=== PATIENT | male | born 1955 | race Two or more races ===

== ENCOUNTER 2019-07-28 17:59 | Emergency (ER) | payer BC ==
[~2019-07-28] VITALS: Ht 170.2 cm; Wt 81.6 kg
--- NOTE | 2019-07-28 18:32 | NUR ---
c/o hematuria and dysuria x 6 months worsening x 1 week 10/10ps. ON ANTIBIOTICS FOR UTI. DENIES SOB, DIZZINESS, WEAKNESS, N/V. AOX4, AMBULATORY, VSS, RR EVEN AND UNLABORED ON RA. NO ACUTE DISTRESS NOTED. READY FOR EVAL.
[2019-07-28 19:06] LABS: APPEARANCE,URINE Cloudy (CLEAR); BILIRUBIN,URINE SMALL (NEGATIVE); BLOOD, URINE Large Ery/uL (NEGATIVE); COLOR,URINE Other (YELLOW); KETONES,URINE Trace (NEGATIVE); LEUKOCYTE ESTERASE ,URINE Large (NEGATIVE); NITRITE, URINE Negative (NEGATIVE); PH,URINE 5.5 (5.0-8.0); PROTEIN,URINE >=300 mg/dl (NEGATIVE); UGLUCOSE Negative (NEGATIVE)
[2019-07-28 19:29] LABS: BACTERIA,URINE 3+ /HPF (None Seen); RBC,URINE TOO NUMEROUS TO COUN /HPF (0-2); SQUAMOUS EPITHELIAL CELL,UR Few /HPF (None Seen); WBC,URINE TOO NUMEROUS TO COUN /HPF (0-3)
--- NOTE | 2019-07-28 19:41 | NUR ---
Patient discharged to home in stable condition. Written and verbal after care instructions given. Patient verbalizes understanding of instruction.
[2019-07-28 21:01] VITALS: BP 116/84
[2019-08-14] MEDS ORDERED: CEPH-570 PO (10:44)
[2019-08-14] MEDS ORDERED: HYDR-4354 PO (10:44)
[2019-08-14] MEDS ORDERED: FLUC200T8 PO (10:44)
== END 2019-07-28 19:45 | disposition home or self-care (01) ==
LOC: ER 18:00
DX: N39.0 Urinary tract infection, site not specified (principal); I10 Essential (primary) hypertension; E78.5 Hyperlipidemia, unspecified; K21.9 Gastro-esophageal reflux disease without esophagitis; Z95.5 Presence of coronary angioplasty implant and graft; Z87.442 Personal history of urinary calculi; Z88.8 Allergy status to other drugs, medicaments and biological substances
CPT/HCPCS: 81000-TC; 87086-TC

== ENCOUNTER 2019-08-10 04:33 | Emergency (ER) | payer OTHER, BC ==
[~2019-08-10] VITALS: Ht 170.2 cm; Wt 82.6 kg
[2019-08-10] MEDS ORDERED: KETOROLAC TROMETHAMINE 15 MG/ML VIAL ONE (04:52)
[2019-08-10] MEDS ORDERED: MORPHINE SULFATE INJ 4 MG/ML DISP.SYRIN ONE (04:52)
[2019-08-10] MEDS ORDERED: IV NS 0.9% 500 ML BAG IV ONE (05:00)
[2019-08-10] MEDS ORDERED: KETOROLAC TROMETHAMINE INJ 30 MG/ML VIAL IV ONE (05:00)
[2019-08-10] MEDS ORDERED: MORPHINE SULFATE INJ 2 MG/ML DISP.SYRIN IV ONE ×2 (05:00→06:00)
--- NOTE | 2019-08-10 05:03 | NUR ---
UNABLE TOP OBTAIN LABS
--- NOTE | 2019-08-10 05:11 | NUR ---
REWORKER AT BEDSIDE.
[2019-08-10 05:25] LABS: BASOPHILS % (AUTO) 0.3 % (0.0-2.0); EOSINOPHILS % (AUTO) 2.6 % (0.0-6.0); HEMATOCRIT 37 % (39-51); HEMOGLOBIN 12.1 g/dL (13.5-17.5); LYMPHOCYTES % (AUTO) 19.1 % (20.0-44.0); MEAN CORPUSCULAR HGB CONC 33 g/dl (31.0-36.0); MEAN CORPUSCULAR VOLUME 86 fL (80-96); MONOCYTES # (AUTO) 0.9 /CMM (0.1-1.30); MONOCYTES % (AUTO) 8.8 % (2.0-12.0); NEUTROPHILS # (AUTO) 7.2 /CMM (1.8-8.9); NEUTROPHILS % (AUTO) 69.2 % (43.0-81.0); PLATELET COUNT (AUTO) 312 /CMM (150-450); RED BLOOD CELL COUNT(AUTO) 4.36 MIL/uL (4.5-6.0); WHITE BLOOD COUNT (AUTO) 10.4 K/uL (4.3-11.0)
--- NOTE | 2019-08-10 05:25 | NUR ---
URINE SENT TO LAB
--- NOTE | 2019-08-10 05:31 | NUR ---
BROUGHT TO CT
--- NOTE | 2019-08-10 05:40 | NUR ---
BROUGHT BACK FROM CT
[2019-08-10 05:41] LABS: CALCIUM, SERUM 8.3 mg/dL (8.5-10.1); CREATININE 1.1 mg/dL (0.6-1.3); POTASSIUM 3.4 mmol/L (3.5-5.1)
[2019-08-10] MEDS ORDERED: MORPHINE SULFATE INJ 2 MG/ML DISP.SYRIN ONE (05:48)
[2019-08-10] MEDS ORDERED: ONDANSETRON HCL/PF 4 MG/2 ML VIAL ONE (05:48)
[2019-08-10] MEDS ORDERED: ONDANSETRON HCL/PF 4 MG/2 ML VIAL IV ONE (06:00)
[2019-08-10 06:39] LABS: BILIRUBIN,URINE MODERATE (NEGATIVE); BLOOD, URINE LARGE Ery/uL (NEGATIVE); COLOR,URINE ORANGE (YELLOW); KETONES,URINE TRACE (NEGATIVE); LEUKOCYTE ESTERASE ,URINE SMALL (NEGATIVE); NITRITE, URINE POSITIVE (NEGATIVE); PH,URINE 5.5 (5.0-8.0); PROTEIN,URINE >=300 mg/dl (NEGATIVE); UGLUCOSE 250 MG/DL mg/dL (NEGATIVE); UROBILINOGEN,URINE >=8.0 EU/dL (0.2)
[2019-08-10 06:41] LABS: APPEARANCE,URINE TURBID (CLEAR); RBC,URINE 81-100 /HPF (0-2); WBC,URINE TOO NUMEROUS TO COUN /HPF (0-3)
[2019-08-10 06:42] LABS: BACTERIA,URINE Rare /HPF (None Seen); SQUAMOUS EPITHELIAL CELL,UR 0-2 /HPF (None Seen)
--- NOTE | 2019-08-10 06:42 | NUR ---
Patient is resting comfortably in bed. Easily aroused. VSS.
[2019-08-10 07:10] VITALS: BP 112/68
--- NOTE | 2019-08-10 07:11 | NUR ---
RESTING COMFORTABLY. VSS.
[2019-08-10] MEDS: HYDROMORPHONE INJ 0.5 MG/0.5 ML SYRINGE IV ONE ×2 (07:15→07:30)
--- NOTE | 2019-08-10 07:20 | NUR ---
ASSESSED PT ON BED ASLEEP EASILY AROUSABLE, AAOX4, NOT IN RESPIRATORY DISTRESS DISTRESS, V/S STABLE, KEPT RESTED AND COMFORTABLE. WILL CONTINUE TO MONITOR.
[2019-08-10] MEDS ORDERED: HYDROMORPHONE 1 MG/1 ML DISP.SYRIN ONE (07:25)
[2019-08-10] MEDS ORDERED: CEFTRIAXONE 1GM BAG (ER ONLY) 50 ML IV ONE (07:25)
[2019-08-10] MEDS ORDERED: PHENAZOPYRIDINE HCL 200 MG TABLET ONE (07:25)
[2019-08-10] MEDS ORDERED: CEFTRIAXONE 1 G in IV D5W 50 ML IV ONE (07:30)
[2019-08-10] MEDS ORDERED: PHENAZOPYRIDINE HCL 200 MG TABLET PO ONE (07:30)
--- NOTE | 2019-08-10 08:05 | NUR ---
IV removed. Catheter intact and site benign. Pressure and 4x4 applied to site. No bleeding noted. Patient discharged to home in stable condition. Written and verbal after care instructions given. Patient verbalizes understanding of instruction.
[2019-08-14] MEDS ORDERED: HYDR-4354 PO (10:44)
[2019-08-14] MEDS ORDERED: CEPH-570 PO (10:44)
[2019-08-14] MEDS ORDERED: FLUC200T8 PO (10:44)
== END 2019-08-10 08:06 | disposition home or self-care (01) ==
LOC: ER 04:37
DX: N21.0 Calculus in bladder (principal); R10.2 Pelvic and perineal pain; I10 Essential (primary) hypertension; E78.5 Hyperlipidemia, unspecified; K21.9 Gastro-esophageal reflux disease without esophagitis; Z95.5 Presence of coronary angioplasty implant and graft; Z87.442 Personal history of urinary calculi
CPT/HCPCS: 36415; 74176; 80048; 81001; 85025; 87086; 96365; 96375; 96376; 99284; J0696; J1170; J1885; J2270 ×2; J2405; J7040; 81000-TC; J7060

== ENCOUNTER 2019-08-11 23:12 | Emergency (ER) | payer OTHER, BC ==
[~2019-08-11] VITALS: Ht 170.2 cm; Wt 81.6 kg
[2019-08-11 23:22] VITALS: BP 136/88
[2019-08-11] MEDS ORDERED: HYDROMORPHONE INJ 2 MG/ML DISP.SYRIN ONE (23:28)
[2019-08-11] MEDS ORDERED: ONDANSETRON 4 MG TAB.RAPDIS ONE (23:29)
[2019-08-11] MEDS ORDERED: ONDANSETRON 4 MG TAB.RAPDIS SL ONE (23:30)
[2019-08-11] MEDS ORDERED: HYDROMORPHONE INJ 0.5 MG/0.5 ML SYRINGE IM ONE (23:30)
--- NOTE | 2019-08-11 23:41 | NUR ---
PT PRESCRIBED NORCO 10. VSS. NO PAIN UPON DISCHARGE.
[2019-08-12] MEDS ORDERED: METO25TA6 PO (23:36)
[2019-08-12] MEDS ORDERED: AMLO5TAB9 PO (23:36)
[2019-08-12] MEDS ORDERED: OMEP20CA15 PO (23:36)
[2019-08-12] MEDS ORDERED: CEPH500C2 PO (23:36)
[2019-08-12] MEDS ORDERED: HYDR-4354 PO (23:36)
[2019-08-14] MEDS ORDERED: HYDR-4354 PO (10:44)
[2019-08-14] MEDS ORDERED: FLUC200T8 PO (10:44)
[2019-08-14] MEDS ORDERED: CEPH-570 PO (10:44)
== END 2019-08-11 23:42 | disposition home or self-care (01) ==
LOC: ER 23:20
DX: N23 Unspecified renal colic (principal); I10 Essential (primary) hypertension; E78.5 Hyperlipidemia, unspecified; K21.9 Gastro-esophageal reflux disease without esophagitis; Z95.5 Presence of coronary angioplasty implant and graft; Z88.8 Allergy status to other drugs, medicaments and biological substances
CPT/HCPCS: 96372; 99283; J1170; Q0162

== ENCOUNTER 2019-08-12 21:29 | Inpatient (IN) | payer OTHER, BC ==
[~2019-08-12] VITALS: Ht 170.2 cm; Wt 85.3 kg
--- NOTE | 2019-08-12 21:42 | NUR ---
PT AAOX4. AMBULATORY WITH STEADY GAIT. C/O LOWER ABD PAIN, SEEN YESTERDAY FOR RENAL STONE, CONTINUES TO HAVE SEVERE PAIN. PT WAS GIVEN PX FOR NORCO 10 BUT PATIENT DID NOT TAKE THE MEDICATION DUE TO HIM TAKING VICODIN PRIOR TO RECIEVING THE NORCO FROM PHARMACY. RR EVEN AND UNLABORED, NO ACUTE DISTRESS NOTED. VSS. WILL CONTINUE TO MONITOR.
[2019-08-12] MEDS ORDERED: KETOROLAC TROMETHAMINE INJ 30 MG/ML VIAL ONE (22:12)
[2019-08-12] MEDS ORDERED: HYDROMORPHONE 1 MG/1 ML DISP.SYRIN ONE ×2 (22:13→23:57)
[2019-08-12 22:27] LABS: APPEARANCE,URINE Cloudy (CLEAR); BILIRUBIN,URINE SMALL (NEGATIVE); BLOOD, URINE Large Ery/uL (NEGATIVE); COLOR,URINE Red (YELLOW); KETONES,URINE Trace (NEGATIVE); LEUKOCYTE ESTERASE ,URINE Large (NEGATIVE); NITRITE, URINE Positive (NEGATIVE); PROTEIN,URINE >=300 mg/dl (NEGATIVE); UGLUCOSE Negative (NEGATIVE)
[2019-08-12] MEDS ORDERED: HYDROMORPHONE INJ 2 MG/ML DISP.SYRIN IV ONE (22:30)
[2019-08-12] MEDS ORDERED: KETOROLAC TROMETHAMINE INJ 30 MG/ML VIAL IV ONE (22:30)
[2019-08-12] MEDS ORDERED: ONDANSETRON HCL/PF 4 MG/2 ML VIAL ONE (22:32)
[2019-08-12 22:37] LABS: BACTERIA,URINE 3+ /HPF (None Seen); RBC,URINE TOO NUMEROUS TO COUN /HPF (0-2); SQUAMOUS EPITHELIAL CELL,UR Few /HPF (None Seen); WBC,URINE 51-80 /HPF (0-3)
[2019-08-12] MEDS ORDERED: ONDANSETRON HCL/PF - ER 4 MG/2 ML VIAL IV ONE (23:00)
[2019-08-12] MEDS ORDERED: CEFTRIAXONE 1 G VIAL IM ONE (23:00)
[2019-08-12] MEDS ORDERED: NITROFURANTOIN/NITROFURAN MAC 100 MG CAPSULE PO ONE (23:00)
[2019-08-12] MEDS ORDERED: FLUCONAZOLE (100 MG) 100 MG TABLET PO ONE (23:00)
[2019-08-12] MEDS ORDERED: NITROFURANTOIN/NITROFURAN MAC 100 MG CAPSULE ONE (23:11)
[2019-08-12] MEDS ORDERED: FLUCONAZOLE (100 MG) 100 MG TABLET ONE (23:11)
[2019-08-12] MEDS ORDERED: CEFTRIAXONE 1GM BAG (ER ONLY) 50 ML IV ONE (23:11)
--- NOTE | 2019-08-12 23:21 | NUR ---
PT DENIES PAIN. VSS. PLACED ON MONITOR AND PULSE OX.
[2019-08-12] MEDS ORDERED: CEFTRIAXONE 1GM BAG (ER ONLY) 1 GM/50 ML PIGGYBACK IV ONE (23:30)
--- NOTE | 2019-08-12 23:31 | NUR ---
CALLED NURSING SUP FOR MEDSURG BED
[2019-08-12] MEDS ORDERED: AMLO5TAB9 PO (23:36)
[2019-08-12] MEDS ORDERED: METO25TA6 PO (23:36)
[2019-08-12] MEDS ORDERED: HYDR-4354 PO (23:36)
[2019-08-12] MEDS ORDERED: OMEP20CA15 PO (23:36)
[2019-08-12] MEDS ORDERED: CEPH500C2 PO (23:36)
--- NOTE | 2019-08-12 23:50 | NUR ---
PT AGREED TO BE ADMITTED. MED RECON DONE.
[2019-08-13] MEDS ORDERED: HYDROMORPHONE 1 MG/1 ML DISP.SYRIN IV PRN
--- NOTE | 2019-08-13 00:20 | NUR ---
REPORT GIVEN TO ROGELIO GALVEZ FOR LATRICIA
[2019-08-13] MEDS ORDERED: ACETAMINOPHEN 325 MG TABLET PO PRN (00:30)
[2019-08-13] MEDS ORDERED: MAG HYDROX/AL HYDROX/SIMETH 30 ML UDC PO PRN (00:30)
[2019-08-13] MEDS ORDERED: MAGNESIUM HYDROXIDE 30 ML UDC PO PRN (00:30)
[2019-08-13] MEDS ORDERED: ONDANSETRON HCL/PF 4 MG/2 ML VIAL IVP PRN (00:30)
[2019-08-13] MEDS ORDERED: IV NS 0.9% 1,000 ML IV SCH (00:30)
[2019-08-13] MEDS ORDERED: Z GUARD REMEDY 2 OZ OINT TP PRN (00:30)
[2019-08-13 00:38] LABS: BASOPHILS % (AUTO) 0.3 % (0.0-2.0); EOSINOPHILS % (AUTO) 3.5 % (0.0-6.0); HEMATOCRIT 36 % (39-51); HEMOGLOBIN 11.8 g/dL (13.5-17.5); LYMPHOCYTES # (AUTO) 2.4 /CMM (0.8-4.8); LYMPHOCYTES % (AUTO) 32.7 % (20.0-44.0); MEAN CORPUSCULAR HGB CONC 33 g/dl (31.0-36.0); MEAN CORPUSCULAR VOLUME 86 fL (80-96); MONOCYTES # (AUTO) 0.8 /CMM (0.1-1.30); MONOCYTES % (AUTO) 11.1 % (2.0-12.0); NEUTROPHILS # (AUTO) 3.8 /CMM (1.8-8.9); NEUTROPHILS % (AUTO) 52.4 % (43.0-81.0); PLATELET COUNT (AUTO) 328 /CMM (150-450); RED BLOOD CELL COUNT(AUTO) 4.17 MIL/uL (4.5-6.0); WHITE BLOOD COUNT (AUTO) 7.3 K/uL (4.3-11.0)
--- NOTE | 2019-08-13 00:45 | NUR ---
MS VICE PRESIDENT NETWORK DEVELOPMENT NOTES Received patient from ER via [facility] accompanied by 1 ER staff. Admitted patient to [facility] due to UTI. Transferred to bed comfortably. Patient noted ambulatory with steady gait. Admission routine done. Patient denies any discomfort at this time. Patient refused skin assessment, no skin issues identified according to patient. Patient preferred to keep on own clothes. Admission orders noted and carried out. Kept patient on bed clean, dry and comfortable. Call light within easy reach. Will continue to monitor accordingly.
[2019-08-13 00:48] LABS: CALCIUM, SERUM 8.7 mg/dL (8.5-10.1); CREATININE 1.3 mg/dL (0.6-1.3); POTASSIUM 4.2 mmol/L (3.5-5.1)
[2019-08-13 01:12] VITALS: BP 140/96
--- NOTE | 2019-08-13 06:38 | NUR ---
MS RN CLOSING NOTES Patient asleep, easily awaken. On RA, no SOB/respiratory distress noted. Denies any discomfort at this time. Able to ambulate to bathroom independently. All due meds given as ordered. All nursing needs attended. Kept on bed clean, dry and comfortable. Call light within easy reach. Endorsed.
[2019-08-13] MEDS ORDERED: IV NS 0.9% 1,000 ML IV PRN (07:25)
--- NOTE | 2019-08-13 07:30 | NUR ---
RN MS NOTES PT IN BED, AWAKE, ALERT AND ORIENTED, WITH COMPLAINT OF LOWER ABDOMINAL PAIN, BREATHING PATTERN NORMAL, AMBULATES WITH STEADY GAIT INSIDE HIS ROOM AND IN THE BATHROOM, IV FLUIDS INFUSING WELL, CALL LIGHT WITHIN REACH.
[2019-08-13] MEDS: PANTOPRAZOLE 40 MG TABLET.DR PO SCH (07:42)
[2019-08-13] MEDS: HYDROCODONE/APAP 5/325MG 1 EACH TABLET PO PRN ×2 (07:46→15:12)
[2019-08-13 08:00] VITALS: BP 126/78
[2019-08-13] MEDS: MORPHINE SULFATE INJ 2 MG/ML DISP.SYRIN IV PRN ×3 (08:14→23:16)
[2019-08-13] MEDS: METOPROLOL TARTRATE 25 MG TABLET PO SCH ×2 (08:21→17:13)
[2019-08-13] MEDS: AMLODIPINE BESYLATE 5 MG TABLET PO SCH (08:22)
--- NOTE | 2019-08-13 08:30 | NUR ---
RN MS NOTES PT SEEN AND EXAMINED BY DR. ARREDONDO, PLAN OF CARE DISCUSSED WITH PT, VERBALIZED UNDERSTANDING.
--- NOTE | 2019-08-13 12:14 | NUR ---
RN MS NOTES PT IN BED, AWAKE, ALERT AND ORIENTED, NO COMPLAINT OF PAIN AT THIS TIME, IV FLUIDS INFUSING WELL, TOLERATES CURRENT DIET, CALL LIGHT WITHIN REACH.
[2019-08-13 16:00] VITALS: BP 121/83
[2019-08-13 19:00] VITALS: BP 108/82
--- NOTE | 2019-08-13 19:00 | NUR ---
RN MS NOTES PT AWAKE, WATCHING TV, ALERT AND ORIENTED, PAIN MEDS GIVEN ORDERED FOR PAIN MANAGEMENT, NOT IN DISTRESS, CALL LIGHT WITHIN REACH, IV FLUIDS INFUSING WELL, SEEN THIS AFTERNOON AGAIN BY DR. ARREDONDO, CURRENT PLAN OF CARE DISCUSSED WITH PT, VERBALIZED UNDERSTANDING, AMBULATES TO THE BATHROOM WITH STEADY GAIT, ALL NEEDS ATTENDED.
--- NOTE | 2019-08-13 19:45 | NUR ---
MS RN OPENING NOTES RECEIVED REPORT FROM [facility] RN ELLE. FOUND Pt AWAKE, TALKING ON THE PHONE. NO S/S OF ACUTE DISTRESS OR SOB NOTED. Pt IS A/OX4, VERBAL, ABLE TO MAKE NEEDS KNOWN; TURKMEN SPEAKING BUT UNDERSTANDS SOME UZBEK. NO C/O PAIN AT THIS TIME. IV ACCESS ON L HAND #20G, IVF NS @100ML/HR. Pt IS AMBULATORY WITH STEADY GAIT. BED LOW & LOCKED. BEDSIDE TABLE AND CALL LIGHT WITHIN REACH. WILL CONTINUE TO MONITOR Pt' CONDITION AND SAFETY DURING THE NIGHT.
[2019-08-13 20:30] VITALS: BP 108/82
[2019-08-13] MEDS ORDERED: FLUCONAZOLE (100 MG) 100 MG TABLET PO SCH (22:00)
[2019-08-13] MEDS ORDERED: CEFTRIAXONE 1 G in IV D5W 50 ML IV SCH (23:00)
--- NOTE | 2019-08-14 00:31 | NUR ---
RN NOTES Pt REQUESTING FOR IVF TO BE OFF WHILE HE IS ASLEEP, SAID HE IS GETTING UP TOO OFTEN TO URINATE AND HE WANTS TO GET SOME REST FOR THE NIGHT. TOOK Pt OFF OF IVF FOR NOW PER Pt REQUEST. IV ABX HAS ALREADY BEEN GIVEN. WILL CONTINUE TO MONITOR Pt.
--- NOTE | 2019-08-14 06:40 | NUR ---
RN CLOSING NOTES NO SIGNIFICANT CHANGES IN Pt's CONDITION. Pt REMAINS STABLE. NO S/S OF ACUTE DISTRESS OR SOB NOTED DURING THE NIGHT. Pt IS RESTING COMFORTABLY IN BED, WITH UNLABORED RESPIRATIONS. ALL NEEDS MET AND ATTENDED TO. SAFETY MEASURES IN PLACE. WILL ENDORSE TO DAYSHIFT RN FOR Pt's LATRICIA.
[2019-08-14 07:01] LABS: BASOPHILS % (AUTO) 0.5 % (0.0-2.0); EOSINOPHILS % (AUTO) 4.5 % (0.0-6.0); HEMATOCRIT 37 % (39-51); HEMOGLOBIN 12.1 g/dL (13.5-17.5); LYMPHOCYTES # (AUTO) 2.1 /CMM (0.8-4.8); LYMPHOCYTES % (AUTO) 27.2 % (20.0-44.0); MEAN CORPUSCULAR HGB CONC 33 g/dl (31.0-36.0); MEAN CORPUSCULAR VOLUME 86 fL (80-96); MONOCYTES # (AUTO) 0.7 /CMM (0.1-1.30); MONOCYTES % (AUTO) 9.5 % (2.0-12.0); NEUTROPHILS # (AUTO) 4.5 /CMM (1.8-8.9); NEUTROPHILS % (AUTO) 58.3 % (43.0-81.0); PLATELET COUNT (AUTO) 343 /CMM (150-450); RED BLOOD CELL COUNT(AUTO) 4.29 MIL/uL (4.5-6.0); WHITE BLOOD COUNT (AUTO) 7.7 K/uL (4.3-11.0)
[2019-08-14 07:15] LABS: MAGNESIUM 2.1 mg/dL (1.8-2.4); PHOSPHORUS 3.2 mg/dL (2.5-4.9); POTASSIUM 3.9 mmol/L (3.5-5.1)
--- NOTE | 2019-08-14 07:20 | NUR ---
RN OPENING NOTES RECEIVED PATIENT IN BED AWAKE WATCHING TV. A/OX4, ABLE TO MAKE NEEDS KNOWN. NOT IN ANY FORM OF DISTRESS, NO SOB. DENIED PAIN OR DISCOMFORT AT THIS TIME. IV ACCESS INTACT AND PATENT. KEPT PATIENT SAFE AND COMFORTABLE. BED IN LOW/LOCKED POSITION, SIDERAILS UPX2, CALL LIGHT IN REACH. WILL MONITOR ACCORDINGLY.
[2019-08-14 08:00] VITALS: BP 113/74
[2019-08-14] MEDS: PANTOPRAZOLE 40 MG TABLET.DR PO SCH (08:29)
[2019-08-14] MEDS: AMLODIPINE BESYLATE 5 MG TABLET PO SCH (08:29)
[2019-08-14 08:30] VITALS: BP 113/74
[2019-08-14] MEDS: METOPROLOL TARTRATE 25 MG TABLET PO SCH (08:30)
[2019-08-14] MEDS ORDERED: diphenhydrAMINE HCL 25 MG CAPSULE PO ONE (08:30)
[2019-08-14] MEDS ORDERED: CEPH-570 PO (10:44)
[2019-08-14] MEDS ORDERED: HYDR-4354 PO (10:44)
[2019-08-14] MEDS ORDERED: FLUC200T8 PO (10:44)
[2019-08-14] MEDS: MORPHINE SULFATE INJ 2 MG/ML DISP.SYRIN IV PRN (12:09)
--- NOTE | 2019-08-14 13:00 | NUR ---
DISCHARGED PATIENT IN STABLE CONDITION PICKED UP BY SON, ACCOMPANIED TO THE LOBBY BY CYNDI PERRY. DISCHARGED INSTRUCTIONS GIVEN, VERBALIZED UNDERSTANDING. ALL BELONGINGS RETURNED, FORMS SIGNED. DC PAPERWORK, EDUCATIONAL MATERIALS, ADN PRESCRIPTION HANDED TO PATIENT. IV ACCESS REMOVED, TIP INTACT, APPLIED PRESSURE, NO BLEEDING. REFUSED SKIN PHOTOS PATIENT STATED NO SKIN ISSUES.
== END 2019-08-14 13:00 | disposition home or self-care (01) | DRG 465 ==
LOC: ER 21:30 → MEDSG2 23:50
PROVIDERS: ADMIT Internal Medicine; ATTEND Nurse Practitioner Acute Care
DX: N21.0 Calculus in bladder (principal); N17.0 Acute kidney failure with tubular necrosis; N20.0 Calculus of kidney; B37.41 Candidal cystitis and urethritis; I10 Essential (primary) hypertension; N40.0 Benign prostatic hyperplasia without lower urinary tract symptoms; K21.9 Gastro-esophageal reflux disease without esophagitis; Z87.442 Personal history of urinary calculi; E78.5 Hyperlipidemia, unspecified
CPT/HCPCS: 36415; 76770-TC; 80048-TC; 81000-TC; 83735-TC; 84100-TC; 85025-TC; 87081-TC; 87086-TC; G0378; J0696; J1170; J1885; J2270; J2405; J7030; J7060; Q0163

== ENCOUNTER 2019-08-16 22:50 | Emergency (ER) | payer OTHER, BC ==
[~2019-08-16] VITALS: Ht 170.2 cm; Wt 81.6 kg
[~2019-08-16 22:50] MED LIST: AMLO5TAB9 PO; CEPH-570 PO; CEPH500C2 PO; FLUC200T8 PO; HYDR-4354 PO; METO25TA6 PO; OMEP20CA15 PO
[2019-08-16] MEDS ORDERED: KETOROLAC TROMETHAMINE 15 MG/ML VIAL ONE (23:14)
[2019-08-16] MEDS ORDERED: KETOROLAC TROMETHAMINE INJ 30 MG/ML VIAL IV ONE (23:30)
[2019-08-16 23:43] LABS: BASOPHILS # (AUTO) 0.1 /CMM (0.0-0.2); EOSINOPHILS % (AUTO) 5.1 % (0.0-6.0); HEMATOCRIT 37 % (39-51); HEMOGLOBIN 12.4 g/dL (13.5-17.5); LYMPHOCYTES # (AUTO) 2.2 /CMM (0.8-4.8); LYMPHOCYTES % (AUTO) 28.7 % (20.0-44.0); MEAN CORPUSCULAR HGB CONC 34 g/dl (31.0-36.0); MEAN CORPUSCULAR VOLUME 86 fL (80-96); MONOCYTES % (AUTO) 12.7 % (2.0-12.0); NEUTROPHILS % (AUTO) 52.5 % (43.0-81.0); PLATELET COUNT (AUTO) 367 /CMM (150-450); RED BLOOD CELL COUNT(AUTO) 4.31 MIL/uL (4.5-6.0); WHITE BLOOD COUNT (AUTO) 7.6 K/uL (4.3-11.0)
[2019-08-16 23:46] LABS: APPEARANCE,URINE Turbid (CLEAR); BILIRUBIN,URINE SMALL (NEGATIVE); BLOOD, URINE Large Ery/uL (NEGATIVE); COLOR,URINE Orange (YELLOW); KETONES,URINE Negative (NEGATIVE); LEUKOCYTE ESTERASE ,URINE Large (NEGATIVE); NITRITE, URINE Negative (NEGATIVE); PROTEIN,URINE >=300 mg/dl (NEGATIVE); UGLUCOSE Negative (NEGATIVE); UROBILINOGEN,URINE 0.2 EU/dL (0.2)
[2019-08-16 23:49] LABS: CALCIUM, SERUM 9.2 mg/dL (8.5-10.1); CREATININE 1.1 mg/dL (0.6-1.3); POTASSIUM 3.8 mmol/L (3.5-5.1)
--- NOTE | 2019-08-16 23:52 | NUR ---
PATIENT CAME TO ER BED 3 C/O LOWER ABDOMINAL/ UPPER PELVIC PAIN. PATIENT STATES THAT HE WAS SUPPOSED TO HAVE HIS KIDNEY STONES REMOVED THIS RECENT SUNDAY, BUT THE APPOINTMENT WAS CANCELLED BY THE FACILITY DUE TO MALFUNCTION OF MACHINE. PATIENT STATES HE WILL HAVE HIS STONES REVOVED ON THE August. AAOX4. NO SOB. BREATHING EVENLY AND UNLABORED ON ROOM AIR. CONNECTED TO MONITOR.
[2019-08-17 00:21] LABS: BACTERIA,URINE Few /HPF (None Seen); RBC,URINE TOO NUMEROUS TO COUN /HPF (0-2); SQUAMOUS EPITHELIAL CELL,UR Rare /HPF (None Seen); WBC,URINE TOO NUMEROUS TO COUN /HPF (0-3)
[2019-08-17] MEDS ORDERED: CIPROFLOXACIN HCL 500 MG TABLET ONE (00:50)
[2019-08-17] MEDS ORDERED: KETOROLAC TROMETHAMINE 15 MG/ML VIAL ONE (00:59)
[2019-08-17] MEDS ORDERED: CIPROFLOXACIN HCL 250 MG TABLET PO ONE (01:00)
[2019-08-17] MEDS ORDERED: KETOROLAC TROMETHAMINE INJ 30 MG/ML VIAL IV ONE (01:00)
[2019-08-17 01:30] VITALS: BP 122/77
== END 2019-08-17 01:30 | disposition home or self-care (01) ==
LOC: ER 22:54
DX: N39.0 Urinary tract infection, site not specified (principal); I10 Essential (primary) hypertension; M10.9 Gout, unspecified; Z87.442 Personal history of urinary calculi; Z88.8 Allergy status to other drugs, medicaments and biological substances; Z79.899 Other long term (current) drug therapy
CPT/HCPCS: 36415; 80048; 81001; 85025; 87086; 96374; 96376; 99284; J1885 ×2; 81000-TC

== ENCOUNTER 2019-08-18 21:59 | Emergency (ER) | payer OTHER, BC ==
[~2019-08-18] VITALS: Ht 170.2 cm; Wt 81.6 kg
[2019-08-18 22:02] VITALS: BP 130/81
[2019-08-18] MEDS ORDERED: HYDROMORPHONE HCL 2 MG TABLET ONE (22:26)
[2019-08-18] MEDS ORDERED: KETOROLAC TROMETHAMINE INJ 30 MG/ML VIAL ONE (22:26)
[2019-08-18] MEDS ORDERED: ONDANSETRON 4 MG TAB.RAPDIS ONE (22:27)
[2019-08-18] MEDS ORDERED: CIPROFLOXACIN HCL 500 MG TABLET ONE (22:27)
[2019-08-18] MEDS ORDERED: FLUCONAZOLE (100 MG) 100 MG TABLET ONE (22:27)
[2019-08-18] MEDS ORDERED: FLUCONAZOLE (100 MG) 100 MG TABLET PO ONE (22:30)
[2019-08-18] MEDS ORDERED: HYDROMORPHONE HCL 2 MG TABLET PO PRN (22:30)
[2019-08-18] MEDS ORDERED: ONDANSETRON 4 MG TAB.RAPDIS SL ONE (22:30)
[2019-08-18] MEDS ORDERED: CIPROFLOXACIN HCL 500 MG TABLET PO ONE (22:30)
[2019-08-18] MEDS ORDERED: KETOROLAC TROMETHAMINE INJ 60 MG/2 ML VIAL IM ONE (22:30)
== END 2019-08-18 22:38 | disposition home or self-care (01) ==
LOC: ER 22:02
DX: N21.0 Calculus in bladder (principal); G89.29 Other chronic pain; I10 Essential (primary) hypertension; M10.9 Gout, unspecified; Z95.818 Presence of other cardiac implants and grafts; Z88.8 Allergy status to other drugs, medicaments and biological substances; Z79.899 Other long term (current) drug therapy
CPT/HCPCS: 96372; 99284; J1885; Q0162

== ENCOUNTER 2019-08-24 21:57 | Emergency (ER) | payer BC, OTHER ==
[~2019-08-24] VITALS: Ht 170.2 cm; Wt 81.6 kg
[2019-08-24 22:22] VITALS: BP 131/82
--- NOTE | 2019-08-24 22:33 | NUR ---
PATIENT LEFT. NOTIFIED
== END 2019-08-24 23:58 | disposition home or self-care (01) ==
LOC: ER 21:58
DX: Z46.6 Encounter for fitting and adjustment of urinary device (principal); I10 Essential (primary) hypertension; M10.9 Gout, unspecified; Z88.8 Allergy status to other drugs, medicaments and biological substances

== ENCOUNTER 2024-10-31 11:39 | Emergency (ER) | payer MEDICARE, OTHER ==
[~2024-10-31] VITALS: Ht 167.6 cm; Wt 59.0 kg
[~2024-10-31 11:39] MED LIST changes: +AMLO-212 PO; -AMLO5TAB9 PO
[2024-10-31] MEDS: KETOROLAC TROMETHAMINE 15 MG/ML VIAL IV ONE (12:00)
[2024-10-31] MEDS ORDERED: KETOROLAC TROMETHAMINE 15 MG/ML VIAL ONE (12:00)
[2024-10-31 12:05] LABS: APPEARANCE,URINE CLEAR (CLEAR); BILIRUBIN,URINE Negative (NEGATIVE); BLOOD, URINE Trace-intact Ery/uL (NEGATIVE); COLOR,URINE YELLOW (YELLOW); KETONES,URINE 15 mg/dL (NEGATIVE); LEUKOCYTE ESTERASE ,URINE Large (NEGATIVE); NITRITE, URINE NEGATIVE (NEGATIVE); PROTEIN,URINE 30 mg/dl (NEGATIVE); UGLUCOSE Negative (NEGATIVE); UROBILINOGEN,URINE 0.2 EU/dL (0.2)
[2024-10-31 12:21] LABS: ADD URINE CULTURE YES; BACTERIA,URINE Rare /HPF (None Seen); MUCUS,URINE Few /LPF (None Seen); SQUAMOUS EPITHELIAL CELL,UR Few /HPF (None Seen); WBC,URINE 51-80 /HPF (0-3)
[2024-10-31 12:24] LABS: HYALINE CASTS, URINE Few /LPF (None Seen)
[2024-10-31] MEDS ORDERED: TAMS-12 PO (13:26)
[2024-10-31] MEDS ORDERED: CIPR-262 PO (13:26)
[2024-10-31 13:58] VITALS: BP 127/79; TEMP 98.2; O2SAT 98
== END 2024-10-31 13:59 | disposition home or self-care (01) ==
LOC: ER 11:47
DX: N20.0 Calculus of kidney (principal); I10 Essential (primary) hypertension; E11.9 Type 2 diabetes mellitus without complications; Z79.899 Other long term (current) drug therapy
CPT/HCPCS: 81001; 87086-TC; 87186-TC; J1885